=== PATIENT | female | born 1970 | race Caucasian/White ===

== ENCOUNTER 2019-04-28 20:48 | Emergency (ER) | payer MEDICAID, OTHER ==
[2019-04-28] MEDS ORDERED: traMADol 50 MG Tab PO ONE (20:49)
--- NOTE | 2019-04-28 21:13 | EDM.PDOC ---
ED HPI GENERAL MEDICAL PROBLEM - General Chief Complaint: General Stated Complaint: INJURED HEAD Time Seen by Provider: 04/28/19 21:08 Source of Information: Reports: Patient - History of Present Illness INITIAL COMMENTS - FREE TEXT/NARRATIVE: Harmony hit her head at the top edge of a counter. This happened at work at 1830 hrs. she has a headache,nausea,and neck pain. 1000 mg Tylenol has afforded her no relief.Denies LOC,visual disturbance or weakness of one side.Also denies any numbness,otorrhea or rhinorrhea. 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 History: Musculoskeletal History: Reports: Back Pain, Chronic, Other (See Below) Other Musculoskeletal History: Carpal tunnel Psychiatric History: Reports: Anxiety - Past Surgical History GI Surgical History: Reports: Cholecystectomy Social & Family History - Tobacco Use Smoking Status *Q: Current Every Day Smoker Years of Tobacco use: 35 Packs/Tins Daily: 0.5 - Caffeine Use Caffeine Use: Reports: Soda - Recreational Drug Use Recreational Drug Use: Yes Recreational Drug Type: Reports: Marijuana/Hashish Recreational Drug Use Frequency: Daily ED ROS GENERAL - Review of Systems Review Of Systems: ROS reveals no pertinent complaints other than HPI. ED EXAM, GENERAL - Physical Exam Exam: See Below Exam Limited By: No Limitations General Appearance: Alert, WD/WN Ears: Normal External Exam Ear Exam: Bilateral Ear: Auricle Normal, Canal Normal, TM normal Nose: Normal Inspection. No: Nasal Drainage Head: Other (Tender patietal scalp. Swollen) Neck: Normal Inspection, Limited Range of Motion. No: Tender Midline Cardiovascular: Normal Peripheral Pulses Neurological: Alert, CN II-XII Intact, No Motor/Sensory Deficits Course - Vital Signs Last Recorded V/S: Last Vital Signs Temp 98.6 F 04/28/19 20:50 Pulse 87 04/28/19 20:50 Resp 18 04/28/19 20:50 BP 115/75 04/28/19 20:50 Pulse Ox 99 04/28/19 20:50 Departure - Departure Time of Disposition: 21:11 Disposition: Home, Self-Care 01 Condition: Good Clinical Impression: Concussion - Discharge Information - Problem List & Annotations (1) Concussion SNOMED Code(s): 011409601 Code(s): S06.0X9A - CONCUSSION W LOSS OF CONSCIOUSNESS OF UNSP DURATION, INIT Status: Acute Qualifiers: Encounter type: initial encounter Loss of consciousness presence/duration: without LOC Qualified Code(s): S06.0X0A - Concussion without loss of consciousness, initial encounter (2) Whiplash injury SNOMED Code(s): 89050524 Code(s): S13.4XXA - SPRAIN OF LIGAMENTS OF CERVICAL SPINE, INITIAL ENCOUNTER Status: Acute Qualifiers: Encounter type: initial encounter Qualified Code(s): S13.4XXA - Sprain of ligaments of cervical spine, initial encounter - Problem List Review Problem List Initiated/Reviewed/Updated: Yes - Assessment/Plan Plan: Tramadol 50 mg tid prn. Along with NSAIDs,rest. Follow up on Thursday. Rest from work until Thursday.
== END 2019-04-28 21:19 | disposition home or self-care (01) ==
LOC: FB.ED 20:48
DX: S06.0X9A Concussion with loss of consciousness of unspecified duration, initial encounter (principal); F17.210 Nicotine dependence, cigarettes, uncomplicated; W22.8XXA Striking against or struck by other objects, initial encounter; Y99.0 Civilian activity done for income or pay
CPT/HCPCS: 99283; A9270

== ENCOUNTER 2020-02-29 20:59 | Emergency (ER) | payer MEDICAID ==
[2020-02-29] MEDS ORDERED: Lidocaine 2% Viscous Solution 15 ML Cup PO ONE ×2 (21:13→21:30)
[2020-02-29] MEDS ORDERED: Ibuprofen 800 MG Tab PO ONE (21:24)
[2020-02-29] MEDS ORDERED: Acetaminophen 500 MG Tab PO ONE (21:24)
[2020-02-29] MEDS: Ondansetron 4 MG Tab.DIS PO ONE ×2 (21:33→21:36)
--- NOTE | 2020-02-29 21:33 | EDM.PDOC ---
ED HPI GENERAL MEDICAL PROBLEM - General Chief Complaint: General Stated Complaint: Denta pain Time Seen by Provider: 02/29/20 21:10 Source of Information: Reports: Patient History Limitations: Reports: No Limitations - History of Present Illness INITIAL COMMENTS - FREE TEXT/NARRATIVE: Patient presented to the ED because of dental pain. She took tylenol and ibuprofen without relief. She was seen by her dentist who diagnosed her with dental infection and was prescribed Amoxicillin. 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: Musculoskeletal History: Reports: Back Pain, Chronic, Other (See Below) Other Musculoskeletal History: Carpal tunnel Psychiatric History: Reports: Anxiety - Past Surgical History GI Surgical History: Reports: Cholecystectomy Social & Family History - Tobacco Use Smoking Status *Q: Current Every Day Smoker Years of Tobacco use: 35 Packs/Tins Daily: 0.5 - Caffeine Use Caffeine Use: Reports: Soda ED ROS GENERAL - Review of Systems Review Of Systems: See Below Constitutional: Reports: No Symptoms HEENT: Reports: Dental Pain Respiratory: Reports: No Symptoms Cardiovascular: Reports: No Symptoms Endocrine: Reports: No Symptoms GI/Abdominal: Reports: No Symptoms : Reports: No Symptoms Musculoskeletal: Reports: No Symptoms Skin: Reports: No Symptoms ED EXAM, GENERAL - Physical Exam Exam: See Below General Appearance: Alert, No Apparent Distress Ears: Normal External Exam, Normal Canal Nose: Normal Inspection, Normal Mucosa, No Blood Throat/Mouth: Normal Inspection, Normal Lips, Normal Gums, Other (multiple dental caries) Head: Atraumatic, Normocephalic Neck: Normal Inspection, Supple, Non-Tender, Full Range of Motion Respiratory/Chest: No Respiratory Distress, Lungs Clear, Normal Breath Sounds Cardiovascular: Normal Peripheral Pulses, Regular Rate, Rhythm, No Edema GI/Abdominal: Normal Bowel Sounds, Soft, Non-Tender, No Organomegaly Back Exam: Normal Inspection, Full Range of Motion Extremities: Normal Inspection, Normal Range of Motion Course - Vital Signs Text/Narrative:: viscous lidocaine apply to her dental pain with relief Last Recorded V/S: Last Vital Signs Temp 36.1 C 02/29/20 21:06 Pulse 62 02/29/20 21:06 Resp 16 02/29/20 21:06 BP 109/60 02/29/20 21:06 Pulse Ox 99 02/29/20 21:06 - Orders/Labs/Meds Meds: Medications Discontinued Medications Generic Name Dose Route Start Last Admin Trade Name Jonoq PRN Reason Stop Dose Admin Acetaminophen 1,000 mg 02/29/20 21:24 02/29/20 21:33 Tylenol Extra Strength PO 02/29/20 21:25 1,000 mg ONETIME ONE Administration Ibuprofen 800 mg 02/29/20 21:24 02/29/20 21:33 Motrin PO 02/29/20 21:25 800 mg ONETIME ONE Administration Lidocaine HCl 15 ml 02/29/20 21:13 02/29/20 21:15 Xylocaine 2% Viscous PO 02/29/20 21:14 15 ml ONETIME ONE Administration Lidocaine HCl 30 ml 02/29/20 21:30 02/29/20 21:33 Xylocaine 2% Viscous PO 02/29/20 21:31 30 ml ONETIME ONE Administration Ondansetron HCl 4 mg 02/29/20 21:24 02/29/20 21:33 Zofran Odt PO 02/29/20 21:25 4 mg ONETIME ONE Administration Departure - Departure Time of Disposition: 21:40 Disposition: Home, Self-Care 01 Condition: Good Clinical Impression: Chronic dental pain, Dental infection - Discharge Information Prescriptions: Ibuprofen [Ibu] 800 mg PO TID PRN #30 tablet PRN Reason: Pain Instructions: Benzocaine mouth gel, ointment, solution, or dental paste Referrals: PCP,None [Primary Care Provider] - Forms: ED Department Discharge Additional Instructions: Continue your amoxicillin until gone Ibuprofen 800 mg with tylenol 1000 mg every 8 hors as needed for pain Viscous lidocaine apply every 4 hours as needed for pain that is not tolerable Follow up with your dentist JHONNY Sepsis Event Note (ED) - Evaluation Sepsis Screening Result: No Definite Risk - Focused Exam Vital Signs: Vital Signs Temp Pulse Resp BP Pulse Ox 02/29/20 21:06 36.1 C 62 16 109/60 99
== END 2020-02-29 21:43 | disposition home or self-care (01) ==
LOC: FB.ED 20:59
DX: K04.7 Periapical abscess without sinus (principal); K02.9 Dental caries, unspecified; J44.9 Chronic obstructive pulmonary disease, unspecified; F17.210 Nicotine dependence, cigarettes, uncomplicated; Z88.5 Allergy status to narcotic agent
CPT/HCPCS: 99283; A9270-GY

== ENCOUNTER 2021-08-26 19:11 | Emergency (ER) | payer MEDICAID ==
[2021-08-26] MEDS ORDERED: Ketorolac 30 MG/ML SDV IVPUSH ONE (19:38)
[2021-08-26] MEDS ORDERED: Sodium Chloride 0.9% 1,000 ML IV ONE ×2 (19:38→20:42)
[2021-08-26] MEDS ORDERED: Ondansetron 4 MG/2 ML SDV IVPUSH ONE (19:38)
--- NOTE | 2021-08-26 19:48 | EDM.PDOC ---
ED HPI GENERAL MEDICAL PROBLEM - General Chief Complaint: Gastrointestinal Problem Stated Complaint: PAIN AND VOMITING Time Seen by Provider: 08/26/21 19:25 Source of Information: Reports: Patient, Family History Limitations: Reports: No Limitations - History of Present Illness INITIAL COMMENTS - FREE TEXT/NARRATIVE: c/o n/v intermittent n/v since Xmas paula 10d ago lives with son who has IDDM and is not ill visited a daughter over the holidays and felt okay ate steak for supper last night says she has had n/v all day, not able to take meds, no f/c/d has sharp pains in her thighs, has a slight ZHU when asked but did not volunteer the information, has had migraines in past but not in recent years says she had swollen neck glands over Xmas that are now gone SH: not working outside house, rare alcohol, smokes a few cigs/d, vapes, no THC PSH: includes choly, denies other abd surgery MEDS: none today no c/o abd pain, did have some mild tender in RUQ not had COVID vax or illness, not had flu vax no resp c/o's, however heard to cough after I left room, PO 95% on RA Generalized Pain Score (Numeric/FACES): 6 - Related Data Allergies Allergy/AdvReac Type Severity Reaction Status Date / Time morphine Allergy Chest Verified 02/29/20 21:03 Tightness Home Meds: Home Meds Ibuprofen [Ibu] 800 mg PO TID PRN #30 tablet 02/29/20 [Rx] Benzonatate 100 mg PO TID #21 capsule 08/26/21 [Rx] Ondansetron [Ondansetron ODT] 4 mg PO Q6H PRN #15 tab.rapdis 08/26/21 [Rx] Past Medical History Respiratory History: Reports: Asthma, COPD 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: Musculoskeletal History: Reports: Back Pain, Chronic, Other (See Below) Other Musculoskeletal History: Carpal tunnel Psychiatric History: Reports: Anxiety - Infectious Disease History Infectious Disease History: Reports: Influenza - Past Surgical History GI Surgical History: Reports: Cholecystectomy Social & Family History - Family History Family Medical History: No Pertinent Family History - Tobacco Use Tobacco Use Status *Q: Current Every Day Tobacco User Years of Tobacco use: 35 Packs/Tins Daily: 0.5 - Caffeine Use Caffeine Use: Reports: Soda Caffeine Use Comment: drinks mountain dew everyday ED ROS GENERAL - Review of Systems Review Of Systems: See Below Constitutional: Reports: No Symptoms HEENT: Reports: No Symptoms Respiratory: Reports: No Symptoms Cardiovascular: Reports: No Symptoms Endocrine: Reports: No Symptoms GI/Abdominal: Reports: Nausea, Vomiting : Reports: No Symptoms Musculoskeletal: Reports: No Symptoms Skin: Reports: No Symptoms Neurological: Reports: No Symptoms Psychiatric: Reports: No Symptoms Hematologic/Lymphatic: Reports: No Symptoms Immunologic: Reports: No Symptoms ED EXAM, GI/ABD - Physical Exam Exam: See Below Exam Limited By: No Limitations General Appearance: Alert, WD/WN Ears: Normal External Exam, Normal Canal, Hearing Grossly Normal, Normal TMs Nose: Normal Inspection, Normal Mucosa, No Blood Throat/Mouth: Normal Inspection, Normal Lips, Normal Teeth, Normal Gums, Normal Oropharynx, Normal Voice, No Airway Compromise Head: Atraumatic, Normocephalic Neck: Normal Inspection, Supple, Non-Tender, Full Range of Motion. No: Lymphadenopathy (R), Lymphadenopathy (L) Respiratory/Chest: No Respiratory Distress, Lungs Clear, Normal Breath Sounds, No Accessory Muscle Use Cardiovascular: Regular Rate, Rhythm, No Edema, No Murmur. No: No Gallop, No JVD GI/Abdominal Exam: Normal Bowel Sounds, Soft, No Distention, Other (mild tender in RUQ, nonspecific, good BS x 4, no guard/rebound) Back Exam: Normal Inspection, Full Range of Motion, NT Extremities: Normal Inspection, Normal Range of Motion, Non-Tender, No Pedal Edema Neurological: Alert, Oriented, CN II-XII Intact, Normal Cognition, Normal Gait, No Motor/Sensory Deficits Psychiatric: Other (unhappy to the point of being angry and not wanting to answer questions, changes position easily) Skin Exam: Warm, Dry, Intact, Normal Color, No Rash Lymphatic: No Adenopathy Course - Vital Signs Last Recorded V/S: Last Vital Signs Temp 36.9 C 08/26/21 19:16 Pulse 60 08/26/21 19:16 Resp 16 08/26/21 19:16 BP 112/65 08/26/21 19:16 Pulse Ox 95 08/26/21 19:16 - Orders/Labs/Meds Orders: Active Orders 24 hr Category Date Time Status Chest 2V [CR] Stat Exams 08/26/21 19:41 Ordered Labs: Laboratory Tests 08/26/21 08/26/21 08/26/21 Range/Units 19:45 19:50 19:50 WBC 5.6 (3.0-10.3) x10-3/uL RBC 4.44 (3.60-5.20) x10(6)uL Hgb 14.8 (11.4-15.5) g/dL Hct 43.0 (34.2-48.2) % MCV 96.7 (76.7-100.5) fL MCH 33.2 (23.9-33.9) pg MCHC 34.4 (31.9-34.8) g/dL RDW 13.3 (12.3-16.5) % Plt Count 225 (151-488) x10(3)uL MPV 7.1 (7.1-12.4) fL Neut % (Auto) 83.2 H (30.8-76.2) % Lymph % (Auto) 4.0 L (18.4-52.1) % [place] % (Auto) 11.4 (4.4-15.7) % Eos % (Auto) 0.7 (0.6-8.1) % Baso % (Auto) 0.7 (0.2-1.5) % Neut # (Auto) 4.6 (1.5-6.3) x10-3/uL Lymph # (Auto) 0.2 L (1.0-4.4) x10-3/uL [place] # (Auto) 0.6 (0.3-1.0) x10-3/uL Eos # (Auto) 0.0 (0.0-0.8) x10-3/uL Baso # (Auto) 0.0 (0.0-0.1) x10-3/uL Sodium 140 (135-145) mmol/L Potassium 3.5 (3.5-5.3) mmol/L Chloride 102 (100-110) mmol/L Carbon Dioxide 24 (21-32) mmol/L BUN 11 (7-18) mg/dL Creatinine 0.8 (0.55-1.02) mg/dL Est Cr Clr Drug Dosing 74.02 mL/min Estimated GFR (MDRD) > 60 (>60) BUN/Creatinine Ratio 13.8 (9-20) Glucose 88 (80-116) mg/dL Calcium 9.3 (8.6-10.2) mg/dL Total Bilirubin 0.4 (0.1-1.3) mg/dL AST 22 (5-25) IU/L ALT 27 (12-36) U/L Alkaline Phosphatase 85 (56-112) IU/L Troponin I (4.0-60.3) pg/mL C-Reactive Protein (0.5-0.9) mg/dL Total Protein 8.3 H (6.0-8.0) g/dL Albumin 4.0 (3.5-5.2) g/dL Globulin 4.3 g/dL Albumin/Globulin Ratio 0.9 Lipase (73-393) U/L Urine Color (YELLOW) Urine Appearance (CLEAR) Urine pH (5.0-6.5) Ur Specific [place] (1.010-1.025) Urine Protein (NEGATIVE) mg/dL Urine Glucose (UA) (NORMAL) mg/dL Urine Ketones (NEGATIVE) mg/dL Urine Occult Blood (NEGATIVE) Urine Nitrite (NEGATIVE) Urine Bilirubin (NEGATIVE) Urine Urobilinogen (NEGATIVE) mg/dL Ur Leukocyte Esterase (NEGATIVE) Urine RBC (0-5) Urine WBC (0-5) Ur Squamous Epith Cells (NS,R,O) Urine Bacteria (NS) Urine Mucus (NS) Influenza Type A RNA Negative (NEGATIVE) Influenza Type B RNA Negative (NEGATIVE) SARS-CoV-2 RNA (RAYO) Positive H (NEGATIVE) 08/26/21 08/26/21 Range/Units 19:50 20:18 WBC (3.0-10.3) x10-3/uL RBC (3.60-5.20) x10(6)uL Hgb (11.4-15.5) g/dL Hct (34.2-48.2) % MCV (76.7-100.5) fL MCH (23.9-33.9) pg MCHC (31.9-34.8) g/dL RDW (12.3-16.5) % Plt Count (151-488) x10(3)uL MPV (7.1-12.4) fL Neut % (Auto) (30.8-76.2) % Lymph % (Auto) (18.4-52.1) % [place] % (Auto) (4.4-15.7) % Eos % (Auto) (0.6-8.1) % Baso % (Auto) (0.2-1.5) % Neut # (Auto) (1.5-6.3) x10-3/uL Lymph # (Auto) (1.0-4.4) x10-3/uL [place] # (Auto) (0.3-1.0) x10-3/uL Eos # (Auto) (0.0-0.8) x10-3/uL Baso # (Auto) (0.0-0.1) x10-3/uL Sodium (135-145) mmol/L Potassium (3.5-5.3) mmol/L Chloride (100-110) mmol/L Carbon Dioxide (21-32) mmol/L BUN (7-18) mg/dL Creatinine (0.55-1.02) mg/dL Est Cr Clr Drug Dosing mL/min Estimated GFR (MDRD) (>60) BUN/Creatinine Ratio (9-20) Glucose (80-116) mg/dL Calcium (8.6-10.2) mg/dL Total Bilirubin (0.1-1.3) mg/dL AST (5-25) IU/L ALT (12-36) U/L Alkaline Phosphatase (56-112) IU/L Troponin I 4.6 (4.0-60.3) pg/mL C-Reactive Protein 2.0 H (0.5-0.9) mg/dL Total Protein (6.0-8.0) g/dL Albumin (3.5-5.2) g/dL Globulin g/dL Albumin/Globulin Ratio Lipase 75 (73-393) U/L Urine Color Yellow (YELLOW) Urine Appearance Slightly cloudy (CLEAR) Urine pH 6.0 (5.0-6.5) Ur Specific [place] 1.020 (1.010-1.025) Urine Protein Trace (NEGATIVE) mg/dL Urine Glucose (UA) Normal (NORMAL) mg/dL Urine Ketones 150 H (NEGATIVE) mg/dL Urine Occult Blood Large H (NEGATIVE) Urine Nitrite Negative (NEGATIVE) Urine Bilirubin Small H (NEGATIVE) Urine Urobilinogen Normal (NEGATIVE) mg/dL Ur Leukocyte Esterase Small H (NEGATIVE) Urine RBC 20-30 H (0-5) Urine WBC 0-5 (0-5) Ur Squamous Epith Cells Rare (NS,R,O) Urine Bacteria Rare H (NS) Urine Mucus Few H (NS) Influenza Type A RNA (NEGATIVE) Influenza Type B RNA (NEGATIVE) SARS-CoV-2 RNA (RAYO) (NEGATIVE) Meds: Medications Discontinued Medications Generic Name Dose Route Start Last Admin Trade Name Freq PRN Reason Stop Dose Admin Sodium Chloride 1,000 mls @ 999 mls/hr 08/26/21 19:38 08/26/21 19:54 Normal Saline IV 08/26/21 20:38 999 mls/hr .BOLUS ONE Administration Sodium Chloride 1,000 mls @ 999 mls/hr 08/26/21 20:42 08/26/21 21:03 Normal Saline IV 08/26/21 21:42 999 mls/hr .BOLUS ONE Administration Ketorolac Tromethamine 30 mg 08/26/21 19:38 08/26/21 19:54 Ketorolac 30 Mg/Ml Sdv IVPUSH 08/26/21 19:39 30 mg ONETIME ONE Administration Ondansetron HCl 4 mg 08/26/21 19:38 08/26/21 19:55 Ondansetron 4 Mg/2 Ml Sdv IVPUSH 08/26/21 19:39 4 mg ONETIME ONE Administration - Re-Assessments/Exams Free Text/Narrative Re-Assessment/Exam: 08/26/21 21:59 CxR 2v is neg per radiology COVID is positive, yet CRP 2.0 and severity is mild, most likely Omicron GI sxs most c/w dehydration felt better after IVFs, voiding in ED pt (who did not have a c/o cough on arrival and denied cough when asked) now saying cough is very bothersome and requesting anti-tussive should do well, likely no longer infectious not wearing mask over mouth and nose except for short periods of time Departure - Departure Time of Disposition: 21:51 Disposition: Home, Self-Care 01 Condition: Good Clinical Impression: COVID-19 virus infection, Moderate dehydration, Hematuria - Discharge Information *PRESCRIPTION DRUG MONITORING PROGRAM REVIEWED*: Not Applicable *COPY OF PRESCRIPTION DRUG MONITORING REPORT IN PATIENT SANJUANA: Not Applicable Prescriptions: Benzonatate 100 mg PO TID #21 capsule Ondansetron [Ondansetron ODT] 4 mg PO Q6H PRN #15 tab.rapdis PRN Reason: Nausea Instructions: Managing the Challenge of Quitting Smoking, Electronic Cigarette Information, COVID-19: What to Do If You Are Sick- [facility] (11/07/2020), Dehydration, Adult, Hematuria, Adult Referrals: Cristine Barron NP [Nurse Practitioner] - Forms: ED Department Discharge Additional Instructions: For cough, take benzonatate 100 mg 1 capsule 3 times a day for 7 days. For nausea, take ondansetron ODT 4 mg 1 tab under the tongue every 6 hours as needed. For pain and inflammation, take ibuprofen 200 mg 3 tabs and acetaminophen 500 mg 2 tabs 4 times a day for several days. Increase fluids, at least 2 liters daily. Rest. Use good handwashing. Quarantine at home for another 4 days. See your doctor in one week for further recommendations. You have a small amount of blood in your urine which is likely unrelated to the COVID and which you should discuss further with your doctor. Sepsis Event Note (ED) - Evaluation Sepsis Screening Result: No Definite Risk - Focused Exam Vital Signs: Vital Signs Temp Pulse Resp BP Pulse Ox 08/26/21 19:16 36.9 C 60 16 112/65 95 - My Orders Last 24 Hours: My Active Orders 08/26/21 19:41 Chest 2V [CR] Stat - Assessment/Plan Last 24 Hours: My Active Orders 08/26/21 19:41 Chest 2V [CR] Stat
[2021-08-26 20:34] LABS: CORONAVIRUS COVID-19 NAA POSITIVE (NEGATIVE)
== END 2021-08-26 22:12 | disposition home or self-care (01) ==
LOC: SUPCPDRO 19:11 → FB.ED 19:11
DX: U07.1 COVID-19 (principal); E86.0 Dehydration; R31.9 Hematuria, unspecified; J44.9 Chronic obstructive pulmonary disease, unspecified; Z88.5 Allergy status to narcotic agent; Z72.0 Tobacco use
CPT/HCPCS: 0240U; 71046; 80053; 81001; 83690; 84484; 85025; 86140; 96374; 96375; 99284; J1885; J2405; J7030